=== PATIENT | female | born 1950 | race African-American/Black ===

== ENCOUNTER 2018-08-15 12:29 | Outpatient (CLI) | payer MEDICARE | END 2018-08-15 14:29 | disposition home or self-care (01) | LOC: ECT 12:29 | DX: F33.3 Major depressive disorder, recurrent, severe with psychotic symptoms (principal); Z90.12 Acquired absence of left breast and nipple; E11.42 Type 2 diabetes mellitus with diabetic polyneuropathy; I10 Essential (primary) hypertension; M81.0 Age-related osteoporosis without current pathological fracture; E78.5 Hyperlipidemia, unspecified; Z89.429 Acquired absence of other toe(s), unspecified side; Z85.3 Personal history of malignant neoplasm of breast; Z85.841 Personal history of malignant neoplasm of brain ==